=== PATIENT | female | born 1950 | race Caucasian/White ===

== ENCOUNTER 2017-05-14 11:48 | Emergency (ER) | payer MEDICARE, OTHER ==
[2017-05-14] MEDS ORDERED: IV NORMAL SALINE 1,000ML 500 ML IV SCH (12:30)
[2017-05-14] MEDS ORDERED: methylPREDNISolone SOD SUCC PF 125 MG/2 ML VIAL. IV ONE (13:00)
[2017-05-14] MEDS ORDERED: FAMOTIDINE 20 MG/2 ML VIAL IVP ONE (13:00)
[2017-05-14] MEDS ORDERED: PRED20TA PO (14:10)
--- NOTE | 2017-05-14 14:10 | PHYS DOC ---
General Chief Complaint: SKIN PROBLEM Stated Complaint: FACIAL SWELLING/VISION PROBLEMS Time Seen by MD: 11:58 Source: patient Exam Limitations: no limitations Problems: History of Present Illness Initial Comments Patient is a very pleasant 66-year-old female who comes in the ED complaining of facial swelling cough. Patient states that she has intermittent exacerbations of what has previously been diagnosed as atopic dermatitis, she has seen dermatology for this in the past on 2 occasions. She's been prescribed betamethasone topically as well as [id number] facial moisturizers with minimal relief, most recently she was seen by her PCP and a steroid taper with hydroxyzine or ineffective. She complains of severe pain and swelling at the face as well as a feeling of a lump in her throat which she has attributed to postnasal drip from allergies, she denies any new known exposures or feeling of intraoral or throat swelling. Denies shortness of breath dyspnea on exertion. ED vital signs are stable Timing/Duration: other Severity: severe Modifying Factors: improves with other Associated Symptoms: rash, other Allergies: Coded Allergies: Penicillins (Verified Allergy, Unknown, 05/14/17) Sulfa (Sulfonamide Antibiotics) (Verified Allergy, Unknown, 05/14/17) levofloxacin (Verified Allergy, Unknown, 05/14/17) terbinafine (Verified Allergy, Unknown, 05/14/17) Past Medical History Medical History: other (anxiety, atopic dermatitis) Surgical History: noncontributory Social History Smoker: cigarettes Alcohol: occasionally Drugs: none Review of Systems Constitutional: denies chills, denies diaphoresis, denies fever, denies malaise EENTM: see HPI Respiratory: cough, denies shortness of breath, denies wheezing Cardiovascular: denies chest pain, denies palpitations, denies syncope Gastrointestinal: denies diarrhea, denies nausea, denies vomiting Musculoskeletal: denies back pain, denies joint swelling, denies neck pain Skin: see HPI Immunological/Allergic: see HPI Physical Exam General Appearance: moderate distress (face and anterior neck bright red swollen and cracking in places) Eyes: bilateral eye normal inspection, bilateral eye PERRL, bilateral eye EOMI Ear, Nose, Throat: hearing grossly normal, normal ENT inspection, normal pharynx (no nasal discharge or evidence of postnasal drip airway is patent) Neck: non-tender, supple Respiratory: normal breath sounds, no respiratory distress Back: no CVA tenderness, no vertebral tenderness 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 After a long discussion the patient does agree to Solu-Medrol and Pepcid intravenously she refuses Benadryl as she is driving. 1406: Patient feeling much better with steroids and Pepcid she says her swelling and redness is much improved and she is ready to go home. Itching has resolved. On my evaluation the neck erythema is greatly improved, her facial swelling has nearly resolved he can now see bone structure and she's feeling much better. I discussed signs and symptoms to monitor as well as urgent indications for return to the department. I discussed urdb-vlp-zdertom prescription medications and the patient's questions were answered she expressed agreement and understanding of treatment plan. Departure Time of Disposition: 14:07 Disposition: 01 HOME, SELF-CARE Diagnosis: allergic reaction, atopic dermatitis Condition: IMPROVED Patient Instructions: Allergy Tests Additional Instructions: Please review the patient education materials given by your ED staff, may consider allergy testing with your doctor in the future. Rest, no strenuous activity, no driving or operating machinery while taking sedative medications. Aggressive hydration to prevent dehydration. [id number] Cerave facial lotion. Continue the facial steroid cream prescribed by her slat pickler. Prescription: Prednisone 20 mg twice daily for 5 days Take Pepcid twice daily and [id number] Benadryl per package instructions while taking the prednisone. Follow-up with your doctor in 3-5 days for recheck. Return to ED with new or changing symptoms. BETO KHALIL DO May 14, 2017 14:10
[2017-05-14 14:20] VITALS: BP 122/49
== END 2017-05-14 14:20 | disposition home or self-care (01) ==
LOC: ER 11:48
DX: T78.40XA Allergy, unspecified, initial encounter (principal); X58.XXXA Exposure to other specified factors, initial encounter; L20.9 Atopic dermatitis, unspecified; F17.210 Nicotine dependence, cigarettes, uncomplicated; Z88.0 Allergy status to penicillin; Z88.1 Allergy status to other antibiotic agents; Z88.8 Allergy status to other drugs, medicaments and biological substances; Z88.2 Allergy status to sulfonamides
CPT/HCPCS: 96361; 96374; 96375; 99284; J2930; S0028; J7030

== ENCOUNTER → 2017-09-03 | Emergency (ER) | payer MEDICARE, OTHER ==
[~2017-09-03] VITALS: Ht 167.6 cm; Wt 61.2 kg
[~2017-09-03] MED LIST: BENZOCAINE ONE 20% MUCOSAL SPRAY.; CONTRAST GIVEN MC PRN; FAMOTIDINE 20 MG/2 ML VIAL IVP ONE; IOHEXOL 240 MG/ML 50ML VIAL. ONE; IOHEXOL 240 MG/ML 50ML VIAL. PO ONE; IOHEXOL 300 MG/ML 75 ML VIAL. IV ONE; IV NORMAL SALINE 1,000ML 1,000 ML IV ONE; IV NORMAL SALINE 1,000ML 1,000 ML IV SCH; IV NORMAL SALINE 500ML 500 ML ONE; MORPHINE SULFATE 10 MG/ML SYRINGE. SQ ONE; ONDANSETRON PF 4 MG/2 ML VIAL. IV ONE; PRED20TA PO; VANCOMYCIN 1 GM VIAL. ONE; VANCOMYCIN 1 GM in IV NORMAL SALINE 250ML 250 ML IV ONE; VANCOMYCIN 1.5 GM in IV NORMAL SALINE 500ML 500 ML IV ONE
--- NOTE | 2017-09-03 18:50 | ED.ADGEN ---
Past History Past Medical History: Anxiety, Hypertension, Other Past Surgical History: Hysterectomy Alcohol Use: Rarely Drug Use: None Adult General Chief Complaint Chief Complaint ".. I been having nausea, vomiting, chest pain.. and lower abd. pain.. since Monday 930 pm... " [facility] HPI Patient is a 67 year old female who presents with above hx and complaints. Rate pain 7/10. Patient reports she's had nausea and vomiting. Unable to keep anything down. Patient reports no passage of gas for the past 48 hours. Patient denies any trauma. Patient denies any intake of bad food. No history of previous bowel problems. Patient has had previous hysterectomy surgery. Patient states she has had some feelings of fever or chills. On exam patient has generalized abdomen discomfort. Does have generalized rebound pain. Abdomen is distended. There is old surgery scars. Patient denies any history of constipation. Patient does have some mild psoas sign on left. Pt. follows at [place]. Review of Systems Review of Systems Constitutional: Subjective history of fever or chills [] Eyes: Denies change in visual acuity, redness, or eye pain [] HENT: Denies nasal congestion or sore throat [] Respiratory: Denies cough or shortness of breath [] Cardiovascular: No additional information not addressed in HPI [] GI: Complaints of abdominal pain, nausea, vomiting,. Patient denies bloody stools or diarrhea [] : Denies dysuria or hematuria [] Musculoskeletal: Denies back pain or joint pain [] Integument: Denies rash or skin lesions [] Neurologic: Denies headache, focal weakness or sensory changes [] Endocrine: Denies polyuria or polydipsia [] All other systems were reviewed and found to be within normal limits, except as documented in this note. Family History Family History Noncontributory Current Medications Current Medications Current Medications Medications (Trade) Dose Ordered Sig/Jennifer Start Time Stop Time Status Last Admin Dose Admin Benzocaine (Hurricaine One) 1 spray STK-MED ONCE 09/04/17 00:20 09/04/17 00:21 DC Famotidine (Pepcid Vial) 20 mg 1X ONCE 09/03/17 20:15 09/03/17 20:16 DC 09/03/17 20:08 20 MG Info (Do NOT chart on this entry -- for MONITORING) 1 each PRN DAILY PRN 09/03/17 21:30 09/05/17 21:29 Iohexol (Omnipaque 240 Mg/ml) 50 ml 1X ONCE 09/03/17 22:00 09/03/17 22:01 DC 09/03/17 21:37 50 ML Iohexol (Omnipaque 300 Mg/ml) 75 ml 1X ONCE 09/03/17 22:00 09/03/17 22:01 DC 09/03/17 21:36 75 ML Metronidazole 100 ml @ 100 mls/hr 1X ONCE 09/03/17 22:00 09/03/17 22:59 DC 09/03/17 22:09 100 MLS/HR Morphine Sulfate (Morphine 10mg Syringe) 10 mg 1X ONCE 09/03/17 20:15 09/03/17 20:16 DC 09/03/17 20:11 10 MG Ondansetron HCl (Zofran) 8 mg 1X ONCE 09/03/17 20:15 09/03/17 20:16 DC 09/03/17 20:10 8 MG Sodium Chloride 500 ml @ As Directed STK-MED ONCE 09/03/17 22:06 09/03/17 22:07 DC Vancomycin HCl (Vancomycin) 1 gm STK-MED ONCE 09/03/17 22:06 09/03/17 22:07 DC Vancomycin HCl 1.5 gm/Sodium Chloride 500 ml @ 250 mls/hr 1X ONCE 09/03/17 22:00 09/03/17 23:59 DC 09/03/17 23:21 250 MLS/HR Vancomycin HCl 1 gm/Sodium Chloride 250 ml @ 250 mls/hr 1X ONCE 09/03/17 21:45 09/03/17 22:44 UNV Allergies Allergies Allergies Coded Allergies Type Severity Reaction Last Updated Verified Penicillins Allergy Intermediate 09/03/17 Yes Sulfa (Sulfonamide Antibiotics) Allergy Intermediate 09/03/17 Yes levofloxacin Allergy Intermediate 09/03/17 Yes terbinafine Allergy Intermediate 09/03/17 Yes Physical Exam Physical Exam Constitutional: In acute distress, non-toxic appearance. [] HENT: Normocephalic, atraumatic, bilateral external ears normal, oropharynx moist, no oral exudates, nose normal. [] Eyes: PERRLA, EOMI, conjunctiva normal, no discharge. [] Neck: Normal range of motion, no tenderness, supple, no stridor. [] Cardiovascular:Heart rate regular rhythm, no murmur [] Lungs & Thorax: Bilateral breath sounds equal at apex on auscultation [] Abdomen: Bowel sounds increased, very distended, generalized tenderness, no masses, no pulsatile masses. [] Old surgical scar. Declined rectal exam at this time. Skin: Warm, dry, no erythema, no rash. Poor turgor Back: No tenderness, no CVA tenderness. [] Extremities: No tenderness, no cyanosis, no clubbing, ROM intact, no edema. [] Arthritic changes. Does seem to have left heel tap and psoas sign. Neurologic: Alert and oriented X 3, normal motor function, normal sensory function, no focal deficits noted. [] Psychologic: Affect anxious, judgement normal, mood normal. [] Current Patient Data Vital Signs Vital Signs Date Time Temp Pulse Resp B/P (MAP) Pulse Ox O2 Delivery O2 Flow Rate FiO2 09/04/17 01:28 79 18 151/75 (100) 96 Room Air 09/03/17 19:07 98.0 Lab Results Laboratory Tests Test 09/03/17 19:25 09/03/17 22:55 White Blood Count 14.0 x10^3/uL (4.0-11.0) H Red Blood Count 5.59 x10^6/uL (3.50-5.40) H Hemoglobin 15.4 g/dL (12.0-15.5) Hematocrit 45.5 % (36.0-47.0) Mean Corpuscular Volume 81 fL (79-100) Mean Corpuscular Hemoglobin 28 pg (25-35) Mean Corpuscular Hemoglobin Concent 34 g/dL (31-37) Red Cell Distribution Width 23.2 % (11.5-14.5) H Platelet Count 174 x10^3/uL (140-400) Neutrophils (%) (Auto) 82 % (31-73) H Lymphocytes (%) (Auto) 12 % (24-48) L Monocytes (%) (Auto) 6 % (0-9) Eosinophils (%) (Auto) 0 % (0-3) Basophils (%) (Auto) 0 % (0-3) Neutrophils # (Auto) 11.5 x10^3uL (1.8-7.7) H Lymphocytes # (Auto) 1.7 x10^3/uL (1.0-4.8) Monocytes # (Auto) 0.8 x10^3/uL (0.0-1.1) Eosinophils # (Auto) 0.0 x10^3/uL (0.0-0.7) Basophils # (Auto) 0.0 x10^3/uL (0.0-0.2) Platelet Estimate Adequate (ADEQUATE) Large Platelets Occ Anisocytosis Slight Schistocytes Occ Prothrombin Time 10.2 SEC (9.4-11.4) Prothrombin Time INR 1.0 (0.9-1.1) PTT < 21 SEC (23-33) L Sodium Level 136 mmol/L (136-145) Potassium Level 3.8 mmol/L (3.5-5.1) Chloride Level 99 mmol/L (98-107) Carbon Dioxide Level 23 mmol/L (21-32) Anion Gap 14 (6-14) Blood Urea Nitrogen 22 mg/dL (7-20) H Creatinine 0.8 mg/dL (0.6-1.0) Estimated GFR (Cockcroft-Gault) 71.3 Glucose Level 131 mg/dL (70-99) H Calcium Level 9.6 mg/dL (8.5-10.1) Total Bilirubin 0.7 mg/dL (0.2-1.0) Direct Bilirubin 0.2 mg/dL (0.0-0.2) Aspartate Amino Transferase (AST) 18 U/L (15-37) Alanine Aminotransferase (ALT) 17 U/L (14-59) Alkaline Phosphatase 96 U/L (46-116) Creatine Kinase 49 U/L (26-192) Creatine Kinase MB (Mass) 1.6 ng/mL (0.0-3.6) Creatine Kinase MB Relative Index 3.3 % (0-4) Troponin I Quantitative < 0.017 ng/mL (0-0.055) Total Protein 7.7 g/dL (6.4-8.2) Albumin 4.1 g/dL (3.4-5.0) Amylase Level 32 U/L (25-115) Lipase 108 U/L (73-393) Urine Collection Type Unknown Urine Color Yellow Urine Clarity Clear Urine pH 5.5 Urine Specific [place] 1.015 Urine Protein Neg (NEG-TRACE) Urine Glucose (UA) Neg mg/dL (NEG) Urine Ketones (Stick) 40 mg/dL (NEG) Urine Blood Neg (NEG) Urine Nitrite Neg (NEG) Urine Bilirubin Neg (NEG) Urine Urobilinogen Dipstick 0.2 mg/dL (0.2 mg/dL) Urine Leukocyte Esterase Trace (NEG) Urine RBC 0 /HPF (0-2) Urine WBC 1-4 /HPF (0-4) Urine Squamous Epithelial Cells Occ /LPF Urine Bacteria 0 /HPF (0-FEW) Urine Opiates Screen Pos (NEG) Urine Methadone Screen Neg (NEG) Urine Barbiturates Neg (NEG) Urine Phencyclidine Screen Neg (NEG) Urine Amphetamine/Methamphetamine Neg (NEG) Urine Benzodiazepines Screen Neg (NEG) Urine Cocaine Screen Neg (NEG) Urine Cannabinoids Screen Neg (NEG) Urine Ethyl Alcohol Neg (NEG) EKG EKG My interpretation of EKG shows a sinus rhythm at 70 bpm. There is some left axis deviation. There is some nonspecific anterior septal changes but no findings of acute STEMI with contralateral changes. Radiology/Procedures Radiology/Procedures I interpretation of acute abdomen film shows no acute cardiopulmonary findings. Does have calcified pulmonary nodules. Degenerative joint changes. No free air under the diaphragm. There is some movement artifact. There appears to be minimal stool in the lower pelvic area. Does have findings of air-fluid levels consistent with ileus of small bowel. CT of abdomen shows distal high-grade small bowel obstruction. Gallstones. Diverticulitis.- See formal report when available. My interpretation of chest x-ray post placement of NG shows adequate placement. Course & Med Decision Making Course & Med Decision Making Pertinent Labs and Imaging studies reviewed. (See chart for details) Discussed presentation, testing and treatment plan with Dr. Baldev Stephens- advised to have patient transferred to [facility]. Requested patient be admitted to internal medicine and he would consult on the distal small bowel ileus. Discussed presentation testing and treatment plan with . Will accept patient in transfer to [facility]- with surgical consult to Dr. Stephens. [] Final Impression Final Impression 1. Abd. Pain 2. Nausea and Vomiting 3. Chest Pain[] 4. Ileus 5. Leukocytosis 6. DM 7. Gall stones 8. High Grade Distal Small Bowel Obstruction 9. Diverticulitis 10. HTN Problems: Dragon Disclaimer Dragon Disclaimer This electronic medical record was generated, in whole or in part, using a voice recognition dictation system. NATACHA RONQUILLO MD Sep 03, 2017 18:50
[2017-09-03 20:02] LABS: BASO % 0 % (0-3); EOS % 0 % (0-3); HEMATOCRIT 45.5 % (36.0-47.0); HEMOGLOBIN 15.4 g/dL (12.0-15.5); LYMPH # 1.7 x10^3/uL (1.0-4.8); LYMPH % 12 % (24-48); MEAN CORPUSCULAR HEMOGLOBIN 28 pg (25-35); MEAN CORPUSCULAR HGB CONC 34 g/dL (31-37); MEAN CORPUSCULAR VOLUME 81 fL (79-100); MONO # 0.8 x10^3/uL (0.0-1.1); MONO % 6 % (0-9); NEUT # 11.5 x10^3uL (1.8-7.7); NEUT % 82 % (31-73); PLATELET COUNT 174 x10^3/uL (140-400); RED BLOOD COUNT 5.59 x10^6/uL (3.50-5.40); RED CELL DISTRIBUTION WIDTH 23.2 % (11.5-14.5)
[2017-09-03 20:24] LABS: ALBUMIN 4.1 g/dL (3.4-5.0); CREATININE 0.8 mg/dL (0.6-1.0); DIRECT BILIRUBIN 0.2 mg/dL (0.0-0.2); GFR 71.3; POTASSIUM 3.8 mmol/L (3.5-5.1); TOTAL BILIRUBIN 0.7 mg/dL (0.2-1.0); TOTAL PROTEIN 7.7 g/dL (6.4-8.2)
[2017-09-03 20:29] LABS: CALCIUM 9.6 mg/dL (8.5-10.1)
--- NOTE | 2017-09-03 21:33 | EKG ---
[address] [address] Test Date: 2017-09-03 Test Time: 19:00:22 Pat Name: KERRY MORENO Department: Room: Gender: F [employer] Tender: LIZ : 1950 Requested By: NATACHA RONQUILLO Order Number: [id number] Reading MD: Measurements Intervals [place] Rate: 70 P: 66 DC: 140 QRS: -5 QRSD: 80 T: 52 QT: 378 QTc: 411 Interpretive Statements SINUS RHYTHM LEFTWARD AXIS QRS(T) CONTOUR ABNORMALITY CONSIDER ANTEROSEPTAL MYOCARDIAL DAMAGE POSSIBLY ABNORMAL ECG RI6.01 No previous ECG available for comparison
--- NOTE | 2017-09-03 22:28 | RAD ---
PQRS Compliance Statement: One or more of the following individualized dose reduction techniques were utilized for this examination: 1. Automated exposure control 2. Adjustment of the mA and/or kV according to patient size 3. Use of iterative reconstruction technique CT ABD PELV W/ORAL IV CONTRAST Clinical Indication: Abnormal xray, r/o ileus
abdominal pain, nausea/vomiting
hx hysterectomy
Comparison: None. Technique: Helical CT imaging of the abdomen and pelvis is performed after 75 cc Omnipaque [id number] IV contrast. Oral contrast also given. Findings: There is motion artifact that degrades image quality. There is right lower lobe atelectasis. Cardiac size normal. Gallbladder is distended, there is cholelithiasis. Mild perihepatic free fluid. The liver, spleen, pancreas, adrenal glands, abdominal aorta, and kidneys are normal. Stomach unremarkable. The appendix is normal. The distal small bowel is decompressed. Moderate sigmoid colon diverticulosis. Transverse and descending colon are decompressed, limiting evaluation. There is distal small bowel obstruction. Point of transition is seen on axial image 57 right of midline in the anterior abdomen, coronal image 7. No abnormality at the point of transition. The small bowel proximal is moderately dilated and fluid-filled. There is fluid in the associated mesentery. Urinary bladder is normal. Uterus surgically absent. No pelvic free fluid. No acute bone abnormality. IMPRESSION: 1. High-grade distal small bowel obstruction. Point of transition as described above. 2. Hydropic gallbladder. Cholelithiasis. No gallbladder wall thickening. 3. Mild perihepatic free fluid. 4. Moderate sigmoid colon diverticulosis without diverticulitis. Electronically signed by: Jalen Naqvi MD (09/03/2017 10:24 PM) [facility]
[2017-09-03 22:54] LABS: ANISOCYTOSIS SLIGHT; PLT ESTIMATE ADEQUATE (ADEQUATE); SCHISTOCYTES OCC
[2017-09-03 23:18] LABS: BARBITURATES NEG (NEG); BENZODIAZEPINES NEG (NEG); CANNABINOIDS NEG (NEG); COCAINE NEG (NEG); METHADONE NEG (NEG); OPIATES POS (NEG); PHENCYCLIDINE NEG (NEG)
[2017-09-03 23:19] LABS: AMPHETAMINE/METHAMPHETAMINE NEG (NEG)
[2017-09-03 23:27] LABS: CLARITY,URINE CLEAR; COLOR,URINE YELLOW
[2017-09-03 23:28] LABS: BACTERIA,URINE 0 /HPF (0-FEW); BILIRUBIN,URINE NEG (NEG); GLUCOSE,URINE NEG (NEG); NITRITE,URINE NEG (NEG); RBC,URINE 0 /HPF (0-2); SQUAMOUS EPITHELIAL CELL,UR OCC /LPF; UROBILINOGEN,URINE 0.2 mg/dL (0.2 mg/dL)
[2017-09-04 01:28] VITALS: BP 151/75
--- NOTE | 2017-09-04 07:19 | RAD ---
Portable chest, 09/04/2017: History: Check NG tube placement Comparison is made to a study from 09/03/2017. An NG tube has been inserted extending into the fundus of the stomach. The heart size and pulmonary vascularity are normal. There is calcific plaquing of the aorta. No pulmonary infiltrate is seen. A calcified granuloma is present in the left base. There is no evidence of pleural fluid. A mildly distended small bowel loop is noted in the left upper quadrant of the abdomen. IMPRESSION: 1. The NG tube extends into the fundus of the stomach. 2. No acute cardiopulmonary abnormality is detected.
--- NOTE | 2017-09-04 08:12 | RAD ---
Chest, 2 views, 09/03/2017: History: Chest and abdominal pain The heart size and pulmonary vascularity are normal. There is calcific plaquing of the aorta. A calcified granuloma is present in the left lower chest. No acute infiltrate is seen. There is no evidence of pleural fluid. IMPRESSION: No acute cardiopulmonary abnormality is detected.
--- NOTE | 2017-09-04 08:17 | RAD ---
Abdomen, 2 views, 09/03/2017: History: Abdominal pain, nausea and vomiting There is moderate gaseous distention of multiple small bowel loops with associated air-fluid levels. There is gas and stool in the colon without colonic distention. No free air is seen in the abdomen. Aortoiliac calcific plaquing is present. IMPRESSION: Small bowel obstruction
== END | disposition short-term general hospital (02) ==
LOC: ER 18:40
DX: K56.699 Other intestinal obstruction unspecified as to partial versus complete obstruction (principal); K80.20 Calculus of gallbladder without cholecystitis without obstruction; K57.32 Diverticulitis of large intestine without perforation or abscess without bleeding; D72.829 Elevated white blood cell count, unspecified; E11.9 Type 2 diabetes mellitus without complications; I10 Essential (primary) hypertension; F41.9 Anxiety disorder, unspecified; Z90.710 Acquired absence of both cervix and uterus; Z88.0 Allergy status to penicillin; Z88.2 Allergy status to sulfonamides; Z88.1 Allergy status to other antibiotic agents; Z88.8 Allergy status to other drugs, medicaments and biological substances
CPT/HCPCS: 36415; 71045; 71046; 74021; 74177; 80048; 80076; 80307; 81001; 82150; 82553; 83690; 84484; 85025; 85610; 85730; 87086; 93005; 96361; 96365; 96366; 96367; 96372; 96375; 99285; J2270; J2405; J3370; J3490; J7040; Q9966; Q9967; S0028; G0479; J7030

== ENCOUNTER → 2021-02-09 | Outpatient (CLI) | payer MEDICARE, OTHER ==
[2017-09-04 01:28] VITALS: BP 151/75
[~2021-02-09] MED LIST changes: -BENZOCAINE ONE 20% MUCOSAL SPRAY.; -CONTRAST GIVEN MC PRN; -FAMOTIDINE 20 MG/2 ML VIAL IVP ONE; -IOHEXOL 240 MG/ML 50ML VIAL. ONE; -IOHEXOL 240 MG/ML 50ML VIAL. PO ONE; -IOHEXOL 300 MG/ML 75 ML VIAL. IV ONE; -IV NORMAL SALINE 1,000ML 1,000 ML IV ONE; -IV NORMAL SALINE 1,000ML 1,000 ML IV SCH; -IV NORMAL SALINE 500ML 500 ML ONE; -MORPHINE SULFATE 10 MG/ML SYRINGE. SQ ONE; -ONDANSETRON PF 4 MG/2 ML VIAL. IV ONE; -VANCOMYCIN 1 GM VIAL. ONE; -VANCOMYCIN 1 GM in IV NORMAL SALINE 250ML 250 ML IV ONE; -VANCOMYCIN 1.5 GM in IV NORMAL SALINE 500ML 500 ML IV ONE
--- NOTE | 2021-02-09 14:58 | RAD ---
EXAM: DUAL ENERGY X-RAY ABSORPTIOMETRY (DEXA). HISTORY: Postmenopausal screening. FINDINGS: The lowest measured T-score is -4.0 in the right hip, based on a bone mineral density of 0. 460 g/cm^2. Refer to the worksheets for full detail. No comparison examinations are available. IMPRESSION: 1. Osteoporosis. Bone mineral density yields a T-score of -2.5 or less. Fracture risk is high. 2. FRAX report: Not calculated. METHODOLOGY: Dual energy x-ray absorptiometry was performed to measure bone mineral density. The foll owing analysis is based on the 2019 Official Positions of the International Society for Clinical Dens itometry: Measurements of the hips and the average of L1-L4 are preferred. When the spine and/or hip cannot be feasibly measured or interpreted, or in the setting of hyperparathyroidism, distal radial bone minera l density may be measured. The lumbar spine T-score is based on the average bone mineral density of L1-L4. In the setting of art ifact or anatomic abnormality, some lumbar levels may be excluded, and the remaining levels used for calculation. A single lumbar level is not used for diagnosis, and if only a single level is available for assessment, another anatomic site will be used to assign a diagnosis. The hip T-score is based on the bone mineral density measurement of the femoral neck or total proxima l femur of either side, whichever is lowest. Bilateral mean values are not used for diagnosis. The forearm T-score is derived from 33% of the distal radius of the nondominant forearm. Electronically signed by: Regina Zapata MD (02/09/2021 2:55 PM) [id number]
--- NOTE | 2021-02-09 17:02 | RAD ---
EXAM: Carotid Doppler sonogram. HISTORY: Tobacco use. COPD. Dizziness. Atherosclerosis. TECHNIQUE: Emery scale and color Doppler sonographic evaluation of the neck with spectral waveform chance lysis was performed and static images are submitted for review. FINDINGS: There is intimal thickening involving the left common carotid artery and mild sclerotic anand que involving the proximal left internal carotid artery. The peak systolic velocity within the right common carotid artery is 74 cm/sec. The peak systolic shanice ocity within the right internal carotid artery is 59 cm/sec and the end diastolic velocity within the right internal carotid artery is 16 cm/sec. The right ICA/CCA ratio is 0.81. The peak systolic velocity within the left common carotid artery is 91 cm/sec. The peak systolic [place] within the left internal carotid artery is 64 cm/sec and the end diastolic velocity within the l eft internal carotid artery is 22 cm/sec. The left ICA/CCA ratio is 0.70. There is normal antegrade flow within both vertebral arteries. IMPRESSION: No Doppler evidence of hemodynamically significant stenosis involving the internal caroti d arteries. PQRS Compliance Statement - Stenosis calculations for CT, MR and conventional angiography are based u perri measurement of the distal ICA diameter in accordance with the NASCET methodology. Stenosis calcu lations for carotid ultrasound studies are derived from validated velocity criteria which are known t o correlate with the NASCET methodology. Electronically signed by: Regina Zapata MD (02/09/2021 5:00 PM) [id number]
== END ==
LOC: US 12:58
PROVIDERS: ATTEND Family Medicine Sports Medicine
DX: M81.0 Age-related osteoporosis without current pathological fracture (principal); M85.88 Other specified disorders of bone density and structure, other site; I65.22 Occlusion and stenosis of left carotid artery; J44.9 Chronic obstructive pulmonary disease, unspecified; Z72.0 Tobacco use
CPT/HCPCS: 77080; 93880

== ENCOUNTER 2021-07-22 21:42 | Emergency (ER) | payer MEDICARE, OTHER ==
[~2021-07-22] VITALS: Ht 167.6 cm; Wt 58.8 kg
--- NOTE | 2021-07-22 22:26 | PHYS DOC ---
Past History Past Medical History: Anxiety, Hypertension, Other Additional Past Medical Histor: eczema Past Surgical History: Hysterectomy Additional Smoking Information: 1/2 pack/day Alcohol Use: None Drug Use: None General Adult EDM: Chief Complaint: EARACHE/EAR PAIN HPI: HPI: " My ear was hurting.. but then it started having drainage.. and felt better...". " I ve had a head cold for few weeks..it got better.. but I was still stuff.. and then this right ear starting hurting reall bad.. and next thing ..I know.. it was bleeding.. if actually feelsd better .. since it started bleeding..:' Patient is a 70year old female retired dependent who presents with above hxc and complaints of Rt ear pain and then bleeding from right ear. Patient does not use Q-tips in ears. Patient has had 2 or 3 weeks of sinus congestion which seemed to resolve until this week when she developed more congestion in her ears and sinuses. Today she felt severe pain in right ear and then a pop sensation and drainage of blood from right ear. Patient denies any travel. Patient denies any sick ill contacts. Did not get flu vaccination this season. Did get COVID vaccination. No history immunosuppression. Patient does have a history of eczema. Patient has multiple antibiotic allergies penicillin, sulfa, levofloxacin, but reports that has taken amoxicillin in the past without problem. Review of Systems: Review of Systems: Constitutional: Denies fever or chills Eyes: Denies change in visual acuity HENT: Complains of nasal congestion and bleeding from right ear Respiratory: Denies cough or shortness of breath Cardiovascular: Denies chest pain or edema GI: Denies abdominal pain, nausea, vomiting, bloody stools or diarrhea : Denies dysuria Musculoskeletal: Denies back pain or joint pain Integument: Denies rash Neurologic: Denies headache, focal weakness or sensory changes Endocrine: Denies polyuria or polydipsia Lymphatic: Denies swollen glands Psychiatric: Denies depression or anxiety Family History: Family History: Noncontributory to presentation Current Medications: Current Meds: See nursing for home meds Allergies: Allergies: Allergies Coded Allergies Type Severity Reaction Last Updated Verified Penicillins Allergy Intermediate 09/03/17 Yes Sulfa (Sulfonamide Antibiotics) Allergy Intermediate 09/03/17 Yes levofloxacin Allergy Intermediate 09/03/17 Yes terbinafine Allergy Intermediate 09/03/17 Yes Physical Exam: PE: Constitutional: Moderate acute distress, non-toxic appearance. [] HENT: Normocephalic, atraumatic, bilateral external ears are injected, right TM is ruptured and draining pus and blood, left ear is injected and red but not ru ptured. Oropharynx moist, no oral exudates, nose: Turbinates clear rhinorrhea. Postnasal drainage. Area around mouth is inflamed which he attributes to her eczema Eyes: PERRLA, EOMI, conjunctiva normal, no discharge. [] Neck: Normal range of motion, no tenderness, supple, no stridor. [] Cardiovascular:Heart rate regular rhythm, no murmur [] Lungs & Thorax: Bilateral breath sounds clear to auscultation [] Abdomen: Bowel sounds normal, soft, no tenderness, no masses, no pulsatile masses. [] Skin: Warm, dry, no erythema, no rash. Eczema Back: No tenderness, no CVA tenderness. [] Extremities: No tenderness, no cyanosis, no clubbing, ROM intact, no edema. Arthritic changes Neurologic: Alert and oriented X 3, normal motor function, normal sensory function, no focal deficits noted. [] Psychologic: Affect anxious, judgement normal, mood normal. [] Current Patient Data: Vital Signs: Vital Signs Date Time Temp Pulse Resp B/P (MAP) Pulse Ox O2 Delivery O2 Flow Rate FiO2 07/22/21 22:01 98.0 80 18 174/79 (110) 98 Room Air EKG: EKG: [] Radiology/Procedures: Radiology/Procedures: [] Heart Score: C/O Chest Pain: N/A Risk Factors: Risk Factors: DM, Current or recent (<one month) smoker, HTN, HLP, family history of CAD, obesity. Risk Scores: Score 0 - 3: 2.5% MACE over next 6 weeks - Discharge Home Score 4 - 6: 20.3% MACE over next 6 weeks - Admit for Clinical Observation Score 7 - 10: 72.7% MACE over next 6 weeks - Early Invasive Strategies Course & Med Decision Making: Course & Med Decision Making Pertinent Labs and Imaging studies reviewed. (See chart for details) Plan a trial of Keflex 500 mg 3 times a day with food for the next 7 days for bilateral otitis. Patient use Cortisporin drops 2 drops each ear 4 times a day. Patient follow-up primary care. Patient make sure that TM heals on the right after completing antibiotics. May use Benadryl 25 to 50 mg 4 times a day for congestion and drainage. Take Tylenol and ibuprofen for pain. Follow-up primary care. Return if any concerns. Risk and benefit of Keflex discussed- and possible cross reaction allergy because of allergy to penicillin. Impression: 1. Bilateral otitis 2. Right TM rupture-currently draining pus and blood 3. Eczema [] Dragon Disclaimer: [employer] Disclaimer: This electronic medical record was generated, in whole or in part, using a voice recognition dictation system. Departure Departure: Referrals: OSIEL CASILLAS DO, [facility] (PCP) Scripts Cephalexin (KEFLEX) 500 Mg Capsule 500 MG PO TID for otitis for 7 Days, #21 CAP Prov: NATACHA RONQUILLO MD 07/22/21 Jc Disclaimer This chart was dictated in whole or in part using Voice Recognition software in a busy, high-work load, and often noisy Emergency Department environment. It may contain unintended and wholly unrecognized errors or omissions. NATACHA RONQUILLO MD Jul 22, 2021 22:26
[2021-07-22] MEDS ORDERED: NEOMYCIN/POLYMYXIN/HC OTIC SUSPENSION 10ML BOTTLE. ONE (22:34)
[2021-07-22] MEDS ORDERED: CEPH500C PO (22:42)
[2021-07-22] MEDS: NEOMYCIN/POLYMYXIN/HC OTIC SUSPENSION 10ML BOTTLE. AU SCH (22:45)
[2021-07-22] MEDS: CEPHALEXIN 250 MG CAPSULE PO ONE (22:45)
[2021-07-22 23:00] VITALS: BP 152/76
== END 2021-07-22 23:01 | disposition home or self-care (01) ==
LOC: ER 21:42
DX: H66.93 Otitis media, unspecified, bilateral (principal); H72.91 Unspecified perforation of tympanic membrane, right ear; L30.9 Dermatitis, unspecified; F41.9 Anxiety disorder, unspecified; I10 Essential (primary) hypertension; F17.200 Nicotine dependence, unspecified, uncomplicated; Z88.0 Allergy status to penicillin; Z88.2 Allergy status to sulfonamides; Z88.1 Allergy status to other antibiotic agents; Z88.8 Allergy status to other drugs, medicaments and biological substances
CPT/HCPCS: 99283